=== PATIENT | male | born 1995 | race Hispanic/Latino ===

== ENCOUNTER 2017-05-29 09:51 | Day surgery (SDC) | payer OTHER ==
[2017-05-29] MEDS: NS 1,000 ML IV (10:00)
[2017-05-29] MEDS ORDERED: PROPOFOL 500 MG/50 ML VIAL As Ordered (10:56)
[2017-05-29] MEDS ORDERED: LIDOCAINE 2% INJ 100 MG/5 ML SDV (FOR ANES.) As Ordered (11:33)
[2017-05-29] MEDS ORDERED: fentaNYL 100 MCG/2 ML INJECTION (J3010) As Ordered (11:34)
== END 2017-05-29 13:44 | disposition home or self-care (01) ==
LOC: M OPP 09:51
DX: K22.8 Other specified diseases of esophagus (principal); K29.70 Gastritis, unspecified, without bleeding; R13.10 Dysphagia, unspecified; R11.2 Nausea with vomiting, unspecified; Z88.0 Allergy status to penicillin
CPT/HCPCS: 43239